=== PATIENT | male | born 1955 | race Caucasian/White ===

== ENCOUNTER 2019-05-02 11:18 | Day surgery (SDC) | payer BC, SELFPAY ==
--- NOTE | 2019-05-01 13:19 | HP.PCM_ITS ---
History and Physical Date of Admission: 05/02/19 HISTORY AND PHYSICAL ? Hilton Silverman II 1955 ? REFERRING PHYSICIAN: Michael Kapoor DO ? CHIEF COMPLAINT: colon consult ? HPI: The patient is a 63 year old male referred for endoscopy. Hilton notes a personal history of proximal ascending colon cancer which was found on screening colonoscopy in November 2017. Patient recently transferred care to [facility] and following with Dr. Kapoor in hematology/oncology. He is due for surveillance colonoscopy. ? Patient denies any change in bowel habits, weight changes, blood in stools, black tarry stools or abdominal pain. denies family history of colon issues. ? The patient notes no upper GI complaints. ? He denies problems with sedation in the past. ? ? PAST MEDICAL HISTORY PAST MEDICAL HISTORY Diagnosis Date ? Colon cancer (HCC) ? ? Depression ? ? Kidney stones ? ? ? PAST SURGICAL HISTORY PAST SURGICAL HISTORY Procedure Laterality Date ? APPENDECTOMY ? 12/10/2017 ? LITHROTRIPSY ? ? ? PAST SURGICAL HISTORY OF ? 12/10/2017 ? Right Colon, Colectomy ? ? ? CURRENT MEDICATIONS Current Outpatient Medications Medication Sig ? FLUoxetine (PROZAC) 20 mg capsule Take 20 mg by mouth once daily. ? traZODone (DESYREL) 50 mg tablet Take 50 mg by mouth daily at bedtime. ? docosahexanoic acid/epa (FISH OIL ORAL) Take 2 capsules by mouth once daily. ? cholecalciferol (VITAMIN D) 1,000 unit tab tablet Take 1,000 Units by mouth once daily. ? Ascorbic Acid (VITAMIN C) 1,000 mg tablet Take 1,000 mg by mouth once daily. ? Vitamin E, dl, acetate, (VITAMIN E) 400 unit capsule Take 400 Units by mouth once daily. ? vit A/vit C/vit E/zinc/copper (PRESERVISION AREDS ORAL) Take 1 tablet by mouth twice daily. ? No current facility-administered medications for this visit. ? ? ALLERGIES: Codeine ? PERSONAL HISTORY: SOCIAL HISTORY Social History ? Tobacco Use ? Smoking status: Former Smoker ? ? Packs/day: 0.75 ? ? Years: 40.00 ? ? Pack years: 30.00 ? ? Types: Cigarettes ? ? Last attempt to quit: 03/22/2016 ? ? Years since quittin.0 ? Smokeless tobacco: Never Used Substance Use Topics ? Alcohol use: Not on file ? Drug use: Not on file ? FAMILY HISTORY: FAMILY HISTORY FAMILY HISTORY Problem Relation Age of Onset ? Pancreatic Cancer Mother ? ? Heart Father ? ? Diabetes Sister ? ? ? REVIEW OF SYMPTOMS: The review of systems data was entered by the nurse and reviewed by me ? Nursing Notes: Julito Willingham 03/29/2019 9:23 AM Signed REVIEW OF SYSTEMS: General: The patient denies fatigue, denies weight loss, denies weight gain, denies feeling hot, and denies feelings of cold. Eyes: The patient denies glaucoma, denies eye injury/surgery, wears glasses or contacts. Ear/Nose/Throat: The patient denies allergies, denies hayfever, denies ear infections, and denies bloody noses. Cardiovascular: The patient denies chest pain, denies heart disease, denies high blood pressure,denies cardiac stent, denies prior heart attack, denies irregular heart beat, denies high cholesterol, denies poor circulation, denies heart failure, other cardiac issues, denies claudication, denies cold feet, denies peripheral arterial stent. Respiratory: The patient denies tuberculosis, denies pneumonia, denies frequent cough, denies pulmonary embolism, denies shortness of breath, and denies coughing up blood. Gastrointestinal: The patient denies difficulty swallowing, denies acid reflux, denies ulcers, denies vomiting, denies jaundice/hepatitis, denies gallbladder problems, denies black or tarry stools, denies hemorrhoids, denies bleeding from rectum, denies diverticulitis, denies constipation, denies diarrhea, denies loss of stool control, and denies hernias. Kidney/Bladder: The patient NOTES kidney stones, denies urine infections, and denies bloody urine. Skin: The patient denies a history of skin cancer, denies bleeding/changing moles, and denies a history of skin rash. Neurologic: The patient denies a history of epilepsy/convulsions, denies headaches, denies head/spinal injuries, and denies stroke/TIA. Psychiatric: The patient denies psychiatric medications, NOTES depression, and denies voices, denies substance abuse. Endocrine: The patient denies thyroid disorders, denies diabetes, and denies hormonal problems. Hematologic: The patient denies a history of bruising, denies bleeding, and denies anemia, denies blood clots. Infections: The patient NOTES a history of measles and mumps, denies rheumatic fever, and denies sexually transmitted diseases. Musculoskeletal: The patient denies back pain/injury, denies back problems, denies sciatica, denies knee/foot trouble, denies arthritis, or denies gout. ? ? When was patient's last Mammogram screening? N/A ? Last Colonoscopy: NA ? Julito Willingham Edit to add-previous colonoscopy in 2018 I have confirmed and edited as necessary, the PFSH and ROS obtained by others. ? PHYSICAL EXAMINATION: ? General: The patient is 63 year old male, well nourished, well hydrated in no acute distress. The patient is oriented to time, place, and person. ? VITALS: Blood pressure 118/68, pulse 89, temperature 36.1 ?C (97 ?F), temperature source Temporal, resp. rate 18, height 180.3 cm (5' 11), weight 82.1 kg (181 lb), SpO2 99 %. Body mass index is 25.24 kg/m?. ? HEENT: Normal cephalic, ataumatic, pupils are equally round, sclera are anicteric, mucous membranes are moist, oropharynx is clear. Neck has no masses, asymmetry or lymphadenopathy. ? Respiratory: Clear to auscultation and percussion. Normal respiratory excursion and pattern. ? Cardiac: Examination is regular rate and rhythm. Normal S1/S2 ? Abdominal exam: Soft, nontender, with no palpable masses. No he patosplenomegaly. No palpable hernias. ? Extremities: no clubbing, cyanosis or edema. No adenopathy. ? LABORATORY VALUES: As Noted ? RADIOLOGIC STUDIES: As Noted ? IMPRESSION: personal history of colon cancer, need for surveillance colonoscopy ? PLAN: I have reviewed my findings with the surgeon. Will plan for lower endoscopy. We discussed the risks and benefits of the planned endoscopy. I have informed the patient that complications can occur including failure to complete the endoscopy and perforation. The patient had the opportunity to ask questions concerning the planned endoscopy. My staff has also explained the procedure to the patient in understandable terms and has given the patient printed material concerning the procedure. The patient freely consents to surgery. ? I plan to use Golytely bowel preparation ? ? Diagnoses: (Z85.038) Personal history of colon cancer (primary encounter diagnosis) ? ? Laine Molina PA-C
[2019-05-02] VITALS (7 sets, daily range): BP systolic 93–111; BP diastolic 64–82; PULSE 63–73; RESP 16; TEMP 36–36.6; O2SAT 97–100; BMI 24.0
--- NOTE | 2019-05-02 | COLBX_PTH ---
PATIENT: ISABELL MONSIVAIS II LOC: EN U#:[id number] AGE/SX: 63/M ROOM: RE05/02/[address]: Dr. Ayleen Reyna MD : 1955 BED: DIS: 05/02/2019 SPEC #: [id number] RECD: 05/02/19 15:04 STATUS: LEXII REBen #: [id number] LAURA: 05/02/19 00:[address]: Ayleen Reyna DEPT: SURGICAL PATHOLOGY RECD BY: Maxx Burch ENTERED: 05/03/19 08:48 SP TYPE: COLON BX OTHR DR: No Primary Care Phys Tissues: Rectum, NOS Procedures: Surgery Specimen Level IV HEADER OPERATION: Colonoscopy (MAC) PRE-OP DIAGNOSIS: Colon cancer TISSUE SUBMITTED: Rectal polyp biopsy MICROSCOPIC DIAGNOSIS Rectal polyp, biopsy: Hyperplastic polyp. AM:james 05/04/19 COMMENT Case has been reviewed in consultation with Dr. Howe who concurs with the above diagnosis. IDC:GEETHA MICROSCOPIC DESCRIPTION Slides are reviewed. GROSS DESCRIPTION Received in fixative is one container labeled with the patient's name and designated rectal polyp biopsy. The specimen consists of multiple irregular fragments of light bose soft tissue that in aggregate measure 0.5 x 0.4 x 0.1 cm. The specimen is totally submitted in one cassette. / GEETHA:james 05/03/19 TC:5 CPT: 71796
[2019-05-02] MEDS: Lactated Ringers 1,000 ML 100 ML IV (11:50)
--- NOTE | 2019-05-02 14:19 | OP.COLON_ITS ---
Patient Name: Hilton Silverman Procedure Date: 05/02/2019 1:04 PM Date of : 1955 Age: 63 Procedure: Colonoscopy Indications: High risk colon cancer surveillance: Personal history of colon cancer Providers: Ayleen Reyna MD Referring MD: Ayleen Reyna MD Medicines: See the Anesthesia note for documentation of the administered medications Patient Profile: Refer to note in patient chart for documentation of history and physical. Last Colonoscopy: Complications: No immediate complications. Procedure: Pre-Anesthesia Assessment: - see anesthesia note After I obtained informed consent, the scope was passed under direct vision. Throughout the procedure, the patient's blood pressure, pulse, and oxygen saturations were monitored continuously. The Colonoscope was introduced through the anus and advanced to the ileocolonic anastomosis. The colonoscopy was performed without difficulty. The patient tolerated the procedure well. The quality of the bowel preparation was adequate. Scope In: 1:13:13 PM Scope Withdrawal Time 0 hours 17 minutes 46 seconds Scope Out: 1:39:51 PM Total Procedure Duration Time 0 hours 26 minutes 38 seconds Findings: The perianal and digital rectal examinations were normal. Pertinent negatives include normal sphincter tone. Non-bleeding internal hemorrhoids were found. A 3 to 8 mm polyp was found in the rectum. The polyp was sessile. It appeared hyperplastic. The polyp was removed with a cold biopsy forceps. Resection and retrieval were complete. Estimated blood loss was minimal. Impression: - Non-bleeding internal hemorrhoids. - No specimens collected. Recommendation: - Repeat colonoscopy in 1 year for surveillance for personal history of colon cancer - Return to primary care physician PRN. - My office will telephone with pathology results in 1-2 weeks - Continue present medications. Procedure Code(s): --- Professional --- 37679, Colonoscopy, flexible; with biopsy, single or multiple Diagnosis Code(s): --- Professional --- Z85.038, Personal history of other malignant neoplasm of large intestine K64.8, Other hemorrhoids CPT copyright 2017 [employer]. All rights reserved. The codes documented in this report are preliminary and upon scouring machine operator review may be revised to meet current compliance requirements. MD Ayleen Espitia MD 05/02/2019 1:45:57 PM This report has been signed electronically. Number of Addenda: 0 Note Initiated On: 05/02/2019 1:04 PM
--- NOTE | 2019-05-02 14:19 | OP.CCLET_ITS ---
05/02/2019 No Primary Care Physician Re : [facility] This procedure was performed on Thursday, May 02, 2019. My impressions and recommendations are as follows: Impressions : - Non-bleeding internal hemorrhoids. - No specimens collected. Recommendations : - Repeat colonoscopy in 1 year for surveillance for personal history of colon cancer - Return to primary care physician PRN. - My office will telephone with pathology results in 1-2 weeks - Continue present medications. My findings are described in the full procedure note, which is enclosed. If I can be of further assistance, please feel free to contact me at Doctor phone number(s): , Work: . Sincerely, MD Ayleen Espitia MD 05/02/2019 1:45:57 PM This report has been signed electronically.
== END 2019-05-02 14:16 | disposition home or self-care (01) ==
LOC: EN 11:19 → AC 11:21
PROVIDERS: Referring Provider Surgery; Visit Provider Surgery
PROC: 0DJD8ZZ Inspection of Lower Intestinal Tract, Via Natural or Artificial Opening Endoscopic (ICD-10-PCS; CPT 45378; principal; 2019-05-02 12:25)
DX: Z12.11 Encounter for screening for malignant neoplasm of colon (principal); K62.1 Rectal polyp; K64.8 Other hemorrhoids; F32.9 Major depressive disorder, single episode, unspecified; F41.9 Anxiety disorder, unspecified; Z85.038 Personal history of other malignant neoplasm of large intestine; Z90.49 Acquired absence of other specified parts of digestive tract; Z87.891 Personal history of nicotine dependence
CPT/HCPCS: 45380; 88305; J7050; J7120; J2405

== ENCOUNTER → 2019-05-03 18:00 | Outpatient (CLI) | payer BC, SELFPAY ==
[2019-05-02 11:38] VITALS: BMI 24.0
== END ==
PROVIDERS: Referring Provider Dermatology; Visit Provider Dermatology
DX: L02.415 Cutaneous abscess of right lower limb (principal)
CPT/HCPCS: 87070; 87205